=== PATIENT | male | born 1960 | race Caucasian/White ===

== ENCOUNTER 2018-03-31 00:15 | Inpatient (IN) ==
[2018-03-31] MEDS ORDERED: Ondansetron 4 MG/2 ML VIAL IVP PRN ×2 (03:19→14:05)
[2018-03-31] MEDS ORDERED: *HR* HYDROcodone/Acet 5/325 mg TABLET PO PRN ×2 (03:43→14:05)
[2018-03-31] MEDS ORDERED: Naloxone 0.4 MG/ML INJ IVP PRN ×2 (03:43→14:05)
[2018-03-31] MEDS ORDERED: *HR* FentaNYL (PF) 100 MCG/2 ML VIAL IVP PRN ×2 (03:43→14:05)
[2018-03-31] MEDS ORDERED: Acetaminophen 325 MG TABLET PO PRN ×2 (03:43→14:05)
--- NOTE | 2018-03-31 03:55 | Internal Med History&Physical ---
Addendum entered and electronically signed by Sravan Viveros MD 03/31/18 19:28: PLEASE NOTE: I ADMITTED THIS PATIENT. I AM THE ADMITTING HOSPITALIST WHO DOCUMENTED THE H&P BELOW. I CONSULTED DR. PEREZ FOR UROLOGIC INTERVENTION. Addendum entered and electronically signed by Glynn Perez 03/31/18 11:44: Patient seen and examined independently. History, review of systems and physical exam findings of PA verified. All pertinent imaging reviewed. I am in agreement with the assessment and plan as outlined by our Urologic Surgery [facility] Physician Vest Backer, Jane. Findings discussed with patient who agrees to proceed with surgery as outlined. Original Note: Date of Encounter: 03/31/18 Time of Encounter: 03:15 Internal Medicine - H&P: HPI Chief complaint: flank pain, N/V, fever/chills Admitted From: Hospital to Hospital Transfer Plans for Post Hospital Care: Home History of present illness: Mr. Verduzco is a 57 year old male who presents in transfer from [facility]. He presented to the ER there earlier tonight with complaints of sudden onset of left-sided flank pain radiating to his suprapubic area, nausea, vomiting, subjective fever, and chills. He also had some hematuria and [employer] colored urine earlier in the evening. Workup at [facility] revealed patient to have acute kidney injury and evidence of obstructive uropathy with an 8 mm ureteral stone on the left side. He also had some perinephric stranding on the CT scan imaging. I spoke with the ER staff and requested that they obtain a urine culture and give an empiric dose of antibiotics for presumptive pyelonephritis. Upon my assessment of the patient once he arrived, patient is resting in bed comfortably. He has minimal pain now. He does look a little dry. He reiterates the above history. Prior to today, he's had no symptoms. He does have a history of kidney stones about 10 years ago with similar presentation. Prior to today/last night, he denies any fevers, chills, or night sweats. He denies any nausea or vomiting other than tonight/this morning. He denies any prior history of prostate problems. Past Med Surg Social Fam HX - Past Medical History Attestation: Yes The following information was validated with the patient. Source: patient, old records reviewed, other ([facility] records) Medical history: cancer, hypertension, kidney stones, RA Additional medical history: skin cancer Psychiatric history: no psych history - Past Surgical History Surgical History: hip replacement, other Additional surgical history: left fontal scalp basal cell carcinoma - Social History Smoking Status: Former smoker Smokeless Tobacco Status: No Alcohol use: rarely Drug use: none Current living situation: Home, With Family Activity Level: Independent ambulation Recent Out of Country Travel Within the Last 8 Weeks: No - Family History Mother Living Status: Age at : 76 Cause of : Renal Failure Hx Family Cardiac Disorders: Yes (HTN) Hx Family Endocrine Disorder: Yes (DM) Father Living Status: Age at : 67 Cause of : Heart Hx Family Cardiac Disorders: Yes (HTN, Strokes) Hx Family Endocrine Disorder: Yes (DM) Internal Medicine - H&P: Meds Aspirin Enteric Coated [Aspirin EC] 325 mg PO DAILY #21 tablet. 08/13/15 [Rx] Cyclobenzaprine [Flexeril] 10 mg PO HS 08/14/15 [History] Diclofenac Sodium [Voltaren] 75 mg PO BID 08/14/15 [History] Folic Acid 2 mg PO DAILY 08/14/15 [History] Lisinopril [Zestril] 20 mg PO DAILY 08/14/15 [History] Methotrexate [Otrexup] 20 mg PO QWEEK 08/14/15 [History] Phenylephrine Nasal 0.5% [place] [[place]-Synephrine] 2 spray NS BID 08/14/15 [History] Potassium Citrate [Urocit-K] 10 meq PO BID 08/14/15 [History] Hydroxychloroquine Sulfate 200 mg PO BID 03/31/18 [History] Lisinopril [Zestril] 40 mg PO DAILY 03/31/18 [History] Methocarbamol 200 mg PO BID 03/31/18 [History] Allergy/AdvReac Type Severity Reaction Status Date / Time doxycycline AdvReac See Verified 08/14/15 14:04 Comments - Constitutional Constitutional: chills, fever(s), no night sweats - EENT Eyes: no blurry vision, no change in vision Ears: no ear pain, no tinnitus Nose, mouth and throat: no nasal congestion, no sinus pressure, no sore throat - Cardiovascular Cardiovascular ROS IM: no chest pain, no dyspnea, no dyspnea on exertion, no syncope - Respiratory Respiratory: no cough, no hemoptysis, no chest congestion, no excessive phlegm production, no change in phlegm color - Gastrointestinal Gastrointestinal: nausea, vomiting, no abdominal pain, no diarrhea, no hematemesis, no hematochezia, no melena - Genitourinary Genitourinary ROS male: difficulty urinating, dysuria, flank pain, hematuria - Musculoskeletal Musculoskeletal ROS IM: arthralgias, back pain - Integumentary Integumentary IM: no rash, no jaundice - Neurological Neurological ROS: no dizziness, no focal weakness, no frequent falls, no headache(s) - Psychiatric Psychiatric: no anxiety, no depression - Endocrine Endocrine IM: no polydipsia, no polyphagia, no polyuria - Allergic/Immunologic Allergic/Immunologic: no GI upset with certain foods - Constitutional Vitals: Temp Pulse Resp BP Pulse Ox 98.2 F 54 15 126/77 94 03/31/18 01:59 03/31/18 01:59 03/31/18 01:59 03/31/18 01:59 03/31/18 01:59 General appearance: Present: cooperative, mild distress, A&O X 3, pleasant, answers questions appropriately Exam: looks a little dry; otherwise NAD - Head Head exam: Present: normal inspection - Eye Eye exam: Present: EOMI, PERRL. Absent: scleral icterus Pupils: Present: normal accommodation - ENT ENT exam: Present: mucous membranes dry, normal exam, normal oropharynx - Neck Neck exam general surgery: Present: full ROM, supple. Absent: tenderness, nuchal rigidity, thyromegaly - Respiratory Respiratory exam: Present: CTAB. Absent: chest wall tenderness, rales, wheezes - Cardiovascular Cardiovascular exam: Present: RRR, +S1, +S2. Absent: diastolic murmur, systolic murmur - GI/Abdominal GI/Abdominal exam: Present: normal bowel sounds, soft, tenderness (left flank area/LUQ). Absent: guarding, hepatomegaly, mass, rebound, splenomegaly - Extremities Exam Extremities exam: Present: full ROM, normal capillary refill, warm, radial pulse s palpable and symmetrical. Absent: calf tenderness, joint swelling, pedal edema, tenderness - Back Exam Back exam: Present: CVA tenderness (L), normal inspection. Absent: CVA tenderness (R) - Neurological Exam Neurological exam: Present: alert, CN II-XII intact, oriented X3, no focal deficits, strengths equal and symetr throughout - Psychiatric Psychiatric exam: Present: normal affect, normal mood - Skin Skin exam: Present: dry, intact, warm Internal Med - H&P Results - Labs Labs: I reviewed the lab records from [facility], and they include the following: WBC 11.0 Hemoglobin 14.7 Hematocrit 43.3 Platelets 208 Sodium 140 Potassium 4.2 Chloride 106 Carbon Dioxide 26 BUN 21 Glucose [address] of the abdomen and pelvis reveals 8mm proximal left ureteral stone with moderate hydronephrosis and marked perinephric stranding - Assessment and plan (1) Ureteral stone with hydronephrosis Current Visit: Yes Status: Acute Assessment and plan: 1. Will keep npo and consult urology as he will likely need cystoscopy with stent placement. 2. IVF hydration and anti-emetic and pain control. (2) Pyelonephritis Current Visit: Yes Status: Suspected Assessment and plan: 1. Urine culture obtained at [facility]. 2. Will order urine culture here at [place] as well. 3. Will treat with IV antibiotics. 4. Will monitor clinically. (3) Acute kidney injury Current Visit: Yes Status: Acute Assessment and plan: 1. Hold LISA. 2. Will place on IVF and monitor I/O and renal function. 3. Consult nephrology if renal functions fails to improve after relief of uretereal obstruction. (4) Rheumatoid arthritis Current Visit: Yes Status: Chronic Assessment and plan: 1. Continue home meds as appropriate. 2. Outpatient follow up with card grader. Qualifiers: Rheumatoid arthritis location: hip Rheumatoid factor presence: unspecified presence Laterality: left Qualified Code(s): M06.9 - Rheumatoid arthritis, unspecified (5) Hypertension Current Visit: Yes Status: Chronic Assessment and plan: 1. Hold LISA. 2. Will order PRN hydralazine for BP control. Qualifiers: Hypertension type: essential hypertension Qualified Code(s): I10 - Essential (primary) hypertension (6) DVT prophylaxis Current Visit: Yes Status: Acute Assessment and plan: 1. Heparin SQ.
[2018-03-31] MEDS: 0.9 % Sodium Chloride 1,000 ML IVC SCH ×2 (04:18→06:35)
[2018-03-31 04:47] LABS: Basophils % 0.5 %; Eosinophils # 0.1 K/mcL (0.0-0.6); Hematocrit 39.8 % (37.5-50.1); Hemoglobin 13.3 g/dL (12.9-16.9); Immature Granulocytes % 0.1 % (0-4); Lymphocytes # 1.7 K/mcL (0.6-4.6); Lymphocytes % 20.5 %; Mean Corpuscular HGB Conc 33.4 g/dL (31.6-35.5); Mean Corpuscular Hemoglobin 29.9 pg (28.0-33.3); Mean Corpuscular Volume 89.4 fL (83.0-100.0); Mean Platelet Volume 9.4 fL (9.4-12.4); Monocytes # 0.6 K/mcL (0.0-1.3); Monocytes % 7.4 %; Neutrophils # 5.9 K/mcL (1.6-8.9); Platelet Count 187 K/mcL (140-400); Red Blood Count 4.45 M/mcL (4.19-5.50); Red Cell Distribution Width 13.7 % (11.5-14.5); Segmented Neutrophils % 70.5 %
[2018-03-31 04:53] LABS: INR 1.1
[2018-03-31] MEDS ORDERED: cefTRIAXone 2,000 MG in Water for inj. (sterile) 20 ML 20 ML IVP SCH (05:00)
[2018-03-31 05:06] LABS: Albumin 3.3 g/dL (3.5-5.7); Albumin/Globulin Ratio 1.6 (1.1-2.2); Bilirubin,Total 0.4 mg/dL (0.3-1.0); Calcium 7.9 mg/dL (8.6-10.3); Globulin 2.1 g/dL (2.4-3.5); Magnesium 1.9 mg/dL (1.6-2.6); Potassium 4.4 mEq/L (3.5-5.1); Total Protein 5.4 g/dL (6.4-8.9)
[2018-03-31] MEDS ORDERED: *HR* Heparin 5,000 UNIT/ML VIAL SQ SCH ×2 (06:00→18:00)
--- NOTE | 2018-03-31 07:28 | Internal Med Progress Note ---
Hospitalist Progress Note - Encounter Date of Encounter: 03/31/18 - Subjective Interval History: Patient admitted 03/31 300; essentially an event note - Exam Vitals: Temp Pulse Resp BP Pulse Ox 98.2 F 54 15 126/77 94 03/31/18 01:59 03/31/18 01:59 03/31/18 01:59 03/31/18 01:59 03/31/18 01:59 - Time Spent with Patient Total time spent is greater than 50% in coordination of care (as documented) at patient's floor/unit and/or counseling patient: Internal Medicine: Result - Labs CBC & Chem 7: 03/31/18 04:02 03/31/18 04:02 Labs: Short CBC 03/31/18 Range/Units 04:02 WBC 8.3 (4.3-11.1) K/mcL Hgb 13.3 (12.9-16.9) g/dL Hct 39.8 (37.5-50.1) % Plt Count 187 (140-400) K/mcL Neutrophils # 5.9 (1.6-8.9) K/mcL BMP 03/31/18 04:02 Sodium 137 Potassium 4.4 Chloride 110 H Carbon Dioxide 23 BUN 22 H Creatinine 1.48 H Glucose 103 Calcium 7.9 L Liver Function 03/31/18 Range/Units 04:02 Total Bilirubin 0.4 (0.3-1.0) mg/dL AST 14 (13-39) Units/L ALT 19 (7-52) Units/L Alkaline Phosphatase 57 (34-104) Units/L Albumin 3.3 L (3.5-5.7) g/dL - ABG Interpretation ABG results: PT/INR, D-dimer PT 12.0 Seconds (9.4-12.1) 03/31/18 04:02 Consult Discharge Plan - Plan Referrals: Alisa Vernon CNP [Primary Care Provider] -
[2018-03-31 08:12] LABS: Bilirubin,Urine Negative (Negative); Blood,Urine Large (Negative); Clarity,Urine Clear (Clear); Color,Urine Yellow (Yellow); Glucose,Urine (UA) Normal (Normal); Ketones,Urine Negative (Negative); Leukocyte Esterase,Urine Negative (Negative); Nitrite,Urine Negative (Negative); Protein,Urine Negative (Neg-Trace); Specific Gravity,Urine < 1.005 (1.010-1.025); Urobilinogen,Urine Normal (Normal)
[2018-03-31 08:15] LABS: Bacteria,Urine None Seen per hpf (None-Few); Hyaline Casts,Urine None Seen per lpf (None-Few); Squamous Epithelial Cell,Urine None Seen per lpf (None-Few); WBC,Urine 0-3 per hpf (0-3)
[2018-03-31] MEDS ORDERED: Phenylephrine Nasal 0.5% 15 ML BOTTLE NS SCH ×2 (09:00→21:00)
[2018-03-31] MEDS ORDERED: Aspirin Enteric Coated 325 MG Tablet PO SCH (09:00)
[2018-03-31] MEDS ORDERED: Folic Acid 1 MG TABLET PO SCH (09:00)
--- NOTE | 2018-03-31 09:24 | Urology - Consult Note ---
Addendum entered and electronically signed by Glynn Brady 03/31/18 13:02: Acute kidney injury: Secondary to ureteral obstruction. Plan: Urinary diversion by stenting. Left renal calculus: In addition to be symptomatic obstructing left ureteral stone there is a 5+ centimeters stone in the left kidney. Discussed findings and options for management. Plan: Will address ureteroscopically via laser lithotripsy at time of symptomatic stone treated. Original Note: <Rosalba Lara N - Last Filed: 03/31/18 09:21> Date of Encounter: 03/31/18 Time of Encounter: 08:50 - Assessment and Plan (1) Ureteral stone with hydronephrosis Current Visit: Yes Status: Acute Assessment and plan: Patient is a 57-year-old male who presents with an 8 mm left proximal ureteral stone and hydronephrosis. Discussed surgical risks and benefits with patient and his including bleeding, infection, scarring, stricture, damage to kidney, damage to bladder, damage to surrounding structures, anesthesia effects, possible deep vein thrombosis, failure to definitively extract stone. Patient a nd his verbalized understanding, and consent has been signed. Patient will remain nothing by mouth, and he is prepared undergo a left ureteroscopic stone extraction with holmium laser lithotripsy, basket retrieval, and left ureteral stent placement with Dr. Brady. Urology CN:HPI Consult date: 03/31/18 Reason for consult Urology: Other (left proximal 8mm ureteral stone and hydronephrosis) History of present illness: Patient is a 57-year-old male who presents with an 8 mm left proximal ureteral stone. Patient has a long-standing history of nephrolithiasis. Patient initially presented to [facility] emergency department, underwent a CT scan of abdomen and pelvis, and was subsequently transferred to [facility] for urologic evaluation. Patient presented with abrupt onset left flank pain radiating to the left groin, gross hematuria and nausea. Patient denies fever, chills, chest pain dyspnea. Mr. Verduzco is a previous patient of Dr. Villasenor at [facility] and was last seen 10 years ago for a ureteroscopic stone extraction. Patient denies any known family history of renal stones. On examination, patient is resting comfortably sitting upright in bed with his at bedside in no apparent distress. Patient states pain is well-controlled at present. Past Med Surg Social Fam HX - Past Medical History Medical history: cancer, hypertension, kidney stones, RA Additional medical history: skin cancer Psychiatric history: no psych history - Past Surgical History Surgical History: hip replacement, other Additional surgical history: left fontal scalp basal cell carcinoma - Social History Smoking Status: Former smoker Smokeless Tobacco Status: No Alcohol use: rarely Drug use: none - Family History Mother Living Status: Age at : 76 Cause of : Renal Failure Hx Family Cardiac Disorders: Yes (HTN) Hx Family Endocrine Disorder: Yes (DM) Father Living Status: Age at : 67 Cause of : Heart Hx Family Cardiac Disorders: Yes (HTN, Strokes) Hx Family Endocrine Disorder: Yes (DM) Medications and Allergies Aspirin Enteric Coated [Aspirin EC] 325 mg PO DAILY #21 tablet. 08/13/15 [Rx] Diclofenac Sodium [Voltaren] 75 mg PO BID 08/14/15 [History] Folic Acid 2 mg PO BID 08/14/15 [History] Lisinopril [Zestril] 20 mg PO DAILY 08/14/15 [History] Methotrexate [Otrexup] 20 mg PO QWEEK 08/14/15 [History] Potassium Citrate [Urocit-K] 10 meq PO BID 08/14/15 [History] Fluticasone Propionate [Allergy Relief] 1 spr NS BID 03/31/18 [History] Hydroxychloroquine Sulfate [Plaquenil] 200 mg PO BID 03/31/18 [History] Lisinopril [Zestril] 40 mg PO DAILY 03/31/18 [History] Methocarbamol [Robaxin] 500 mg PO BID 03/31/18 [History] cloNIDine HCl [CloNIDine HCl] 0.1 mg PO HS 03/31/18 [History] Allergy/AdvReac Type Severity Reaction Status Date / Time doxycycline AdvReac See Verified 08/14/15 14:04 Comments Review of Systems - Constitutional no chills, no fatigue, no fever(s) - EENT Nose, mouth and throat: no dizziness, no headache(s) - Cardiovascular no chest pain, no diaphoresis, no dyspnea - Respiratory no cough, no dyspnea - Gastrointestinal abdominal pain, nausea, no vomiting - Genitourinary flank pain (left), hematuria, urinary frequency, urinary urgency, no change in urinary stream, no difficulty urinating, no dysuria, no urinary hesitancy - Musculoskeletal no back pain, no muscle weakness - Integumentary no erythema, no rash - Neurological no confusion, no syncope - Psychiatric no anxiety, no confusion - Hematologic/Lymphatic easy bleeding, easy bruising (patient takes methotrexate for arthritis ) - Allergic/Immunologic no throat swelling, no wheezing Exam Initial Vital Signs Temp Pulse Resp BP Pulse Ox 98.2 F 54 15 126/77 94 03/31/18 01:59 03/31/18 01:59 03/31/18 01:59 03/31/18 01:59 03/31/18 01:59 - General physical appearance Present: well developed, no distress, no pain - Eyes Present: PERRL, normal ocular movement - ENT Present: normal nares, no hearing loss, no congestion - Neck Present: no masses, trachea midline - Respiratory Present: normal respiratory effort - Cardiovascular Cardiovascular exam IM: RRR - Abdomen Abdomen: Present: soft, non tender - Integumentary Present: no rash, no abnormal pigmentation - Neurologic Present: normal coordination - Musculoskeletal Present: other (normal posture ) Urology Results - Labs 03/31/18 04:02 03/31/18 04:02 Abnormal lab results Chloride 110 mEq/L (98-107) H 03/31/18 04:02 BUN 22 mg/dL (6-20) H 03/31/18 04:02 Creatinine 1.48 mg/dL (0.70-1.30) H 03/31/18 04:02 Est GFR ( Amer) 59 (> 60) L 03/31/18 04:02 Est GFR (Non-Af Amer) 49 (> 60) L 03/31/18 04:02 Calcium 7.9 mg/dL (8.6-10.3) L 03/31/18 04:02 Serum Total Protein 5.4 g/dL (6.4-8.9) L 03/31/18 04:02 Albumin 3.3 g/dL (3.5-5.7) L 03/31/18 04:02 Globulin 2.1 g/dL (2.4-3.5) L 03/31/18 04:02 Ur Specific [place] < 1.005 (1.010-1.025) L 03/31/18 05:42 Urine Blood Large (Negative) H 03/31/18 05:42 Urine Microscopic RBC 3-5 per hpf (0-3) H 03/31/18 05:42 Diabetes panel 03/31/18 Range/Units 04:02 Sodium 137 (136-145) mEq/L Potassium 4.4 (3.5-5.1) mEq/L Chloride 110 H (98-107) mEq/L Carbon Dioxide 23 (23-29) mEq/L BUN 22 H (6-20) mg/dL Creatinine 1.48 H (0.70-1.30) mg/dL Glucose 103 (70-105) mg/dL Calcium 7.9 L (8.6-10.3) mg/dL AST 14 (13-39) Units/L ALT 19 (7-52) Units/L Alkaline Phosphatase 57 (34-104) Units/L Albumin 3.3 L (3.5-5.7) g/dL Calcium panel 03/31/18 Range/Units 04:02 Calcium 7.9 L (8.6-10.3) mg/dL Albumin 3.3 L (3.5-5.7) g/dL Pituitary panel 03/31/18 Range/Units 04:02 Sodium 137 (136-145) mEq/L Potassium 4.4 (3.5-5.1) mEq/L Chloride 110 H (98-107) mEq/L Carbon Dioxide 23 (23-29) mEq/L BUN 22 H (6-20) mg/dL Creatinine 1.48 H (0.70-1.30) mg/dL Glucose 103 (70-105) mg/dL Calcium 7.9 L (8.6-10.3) mg/dL Adrenal panel 03/31/18 Range/Units 04:02 Sodium 137 (136-145) mEq/L Potassium 4.4 (3.5-5.1) mEq/L Chloride 110 H (98-107) mEq/L Carbon Dioxide 23 (23-29) mEq/L BUN 22 H (6-20) mg/dL Creatinine 1.48 H (0.70-1.30) mg/dL Glucose 103 (70-105) mg/dL Calcium 7.9 L (8.6-10.3) mg/dL Total Bilirubin 0.4 (0.3-1.0) mg/dL AST 14 (13-39) Units/L ALT 19 (7-52) Units/L Alkaline Phosphatase 57 (34-104) Units/L Albumin 3.3 L (3.5-5.7) g/dL All other labs normal. - Imaging CT scan - abdomen: report reviewed CT scan - pelvis: report reviewed (images performed through [facility]) Consult Discharge Plan - Plan Referrals: Alisa Vernon, EARRING MAKER [Primary Care Provider] - <Glynn Brady W - Last Filed: 03/31/18 11:46> Date of Encounter: 03/31/18 - Assessment and Plan (1) Ureteral stone with hydronephrosis Current Visit: Yes Status: Acute Assessment and plan: Patient seen and examined independently. History, review of systems and physical exam findings of PA verified. All pertinent imaging reviewed. I am in agreement with the assessment and plan as outlined by our Urologic Surgery Department Physician Retail Analyst, Jane. Findings discussed with patient who agrees to proceed with surgery as outlined. Exam Initial Vital Signs Temp Pulse Resp BP Pulse Ox 98.2 F 54 15 126/77 94 03/31/18 01:59 03/31/18 01:59 03/31/18 01:59 03/31/18 01:59 03/31/18 01:59 Urology Results - Labs 03/31/18 04:02 03/31/18 04:02 Abnormal lab results Chloride 110 mEq/L (98-107) H 03/31/18 04:02 BUN 22 mg/dL (6-20) H 03/31/18 04:02 Creatinine 1.48 mg/dL (0.70-1.30) H 03/31/18 04:02 Est GFR ( Amer) 59 (> 60) L 03/31/18 04:02 Est GFR (Non-Af Amer) 49 (> 60) L 03/31/18 04:02 Calcium 7.9 mg/dL (8.6-10.3) L 03/31/18 04:02 Serum Total Protein 5.4 g/dL (6.4-8.9) L 03/31/18 04:02 Albumin 3.3 g/dL (3.5-5.7) L 03/31/18 04:02 Globulin 2.1 g/dL (2.4-3.5) L 03/31/18 04:02 Ur Specific [place] < 1.005 (1.010-1.025) L 03/31/18 05:42 Urine Blood Large (Negative) H 03/31/18 05:42 Urine Microscopic RBC 3-5 per hpf (0-3) H 03/31/18 05:42 Diabetes panel 03/31/18 Range/Units 04:02 Sodium 137 (136-145) mEq/L Potassium 4.4 (3.5-5.1) mEq/L Chloride 110 H (98-107) mEq/L Carbon Dioxide 23 (23-29) mEq/L BUN 22 H (6-20) mg/dL Creatinine 1.48 H (0.70-1.30) mg/dL Glucose 103 (70-105) mg/dL Calcium 7.9 L (8.6-10.3) mg/dL AST 14 (13-39) Units/L ALT 19 (7-52) Units/L Alkaline Phosphatase 57 (34-104) Units/L Albumin 3.3 L (3.5-5.7) g/dL Calcium panel 03/31/18 Range/Units 04:02 Calcium 7.9 L (8.6-10.3) mg/dL Albumin 3.3 L (3.5-5.7) g/dL Pituitary panel 03/31/18 Range/Units 04:02 Sodium 137 (136-145) mEq/L Potassium 4.4 (3.5-5.1) mEq/L Chloride 110 H (98-107) mEq/L Carbon Dioxide 23 (23-29) mEq/L BUN 22 H (6-20) mg/dL Creatinine 1.48 H (0.70-1.30) mg/dL Glucose 103 (70-105) mg/dL Calcium 7.9 L (8.6-10.3) mg/dL Adrenal panel 03/31/18 Range/Units 04:02 Sodium 137 (136-145) mEq/L Potassium 4.4 (3.5-5.1) mEq/L Chloride 110 H (98-107) mEq/L Carbon Dioxide 23 (23-29) mEq/L BUN 22 H (6-20) mg/dL Creatinine 1.48 H (0.70-1.30) mg/dL Glucose 103 (70-105) mg/dL Calcium 7.9 L (8.6-10.3) mg/dL Total Bilirubin 0.4 (0.3-1.0) mg/dL AST 14 (13-39) Units/L ALT 19 (7-52) Units/L Alkaline Phosphatase 57 (34-104) Units/L Albumin 3.3 L (3.5-5.7) g/dL All other labs normal.
[2018-03-31] MEDS ORDERED: Isovue-300 50 ML VIAL IVP ONE (11:19)
--- NOTE | 2018-03-31 11:30 | Anesthesia Evaluation PreOp ---
Date of Encounter: 03/31/18 Time of Encounter: 11:45 - Past History Planned Operation: Left Ureteroscopic Stone Exraction Cardiac History: HTN, Hyperlipidemia Pulmonary History: Former smoker (quit 20 years ago), Asthma TRAILER PARK MANAGER History: Denies Any Significant HX Other Medical History: Renal (kidney stones), Other (skin CA, RA) Anesthesia History: No Prior Anesthetic Complications, Past Anesthesia Alcohol Use: rarely Drug use: none Medications and Allergies Aspirin Enteric Coated [Aspirin EC] 325 mg PO DAILY #21 tablet. 08/13/15 [Rx] Diclofenac Sodium [Voltaren] 75 mg PO BID 08/14/15 [History] Folic Acid 2 mg PO BID 08/14/15 [History] Lisinopril [Zestril] 20 mg PO DAILY 08/14/15 [History] Methotrexate [Otrexup] 20 mg PO QWEEK 08/14/15 [History] Potassium Citrate [Urocit-K] 10 meq PO BID 08/14/15 [History] Fluticasone Propionate [Allergy Relief] 1 spr NS BID 03/31/18 [History] Hydroxychloroquine Sulfate [Plaquenil] 200 mg PO BID 03/31/18 [History] Lisinopril [Zestril] 40 mg PO DAILY 03/31/18 [History] Methocarbamol [Robaxin] 500 mg PO BID 03/31/18 [History] cloNIDine HCl [CloNIDine HCl] 0.1 mg PO HS 03/31/18 [History] Allergy/AdvReac Type Severity Reaction Status Date / Time doxycycline AdvReac See Verified 08/14/15 14:04 Comments - Meds/Allergy Pre-op Review Medications Reviewed: Yes Allergies Reviewed: Yes Beta Blockers on Current Med List: No Anesthesia Results - Labs 03/31/18 04:02 03/31/18 04:02 - Imaging EKG: report reviewed (08/14/2015 Sinus rhythm) Anesthesia Exam Vital Signs/O2 Sat/Glucose, Most Recent Temp Pulse Resp BP Pulse Ox 97.9 F 52 16 131/69 97 03/31/18 08:01 03/31/18 08:01 03/31/18 08:01 03/31/18 08:01 03/31/18 08:01 Blood Glucose* 88 Height: 6'1''/1.85m Weight: 259 lbs/118 kg NPO (# of Hours): 8 Pain Scale: 0 Pain Scale Used: Numeric (1 - 10) - HEENT Pupil (Motor): EOMI Mallampati: II Teeth: Normal, Prosthesis Oral Opening: Greater than 3 - TRAILER PARK MANAGER LOC: Oriented TRAILER PARK MANAGER Motor: Normal RUE, Normal LUE, Normal RLE, Normal LLE, Normal Face TRAILER PARK MANAGER Sensory: Normal: RUE, LUE, RLE, LLE, Face - Cardiac Rhythm: Regular Murmur: None - Pulmonary Breath Sounds: bilateral Clear Respiratory Effort: Symmetrical Anesthesia Assess/Plan ASA Score: 2 Level of consciousness: Cooperative, Oriented, Tranquil Anesthetic Plan: General Monitoring Plan: Standard Monitors Recovery Plan: PACU
[2018-03-31] MEDS ORDERED: Albuterol 2.5 MG/3 ML NEBULIZER ONE (11:40)
[2018-03-31] MEDS ORDERED: Albuterol 2.5 MG/3 ML NEBULIZER IH ONE ×2 (11:49→14:05)
[2018-03-31] MEDS ORDERED: Ketorolac 30 MG/ML VIAL ONE (11:56)
[2018-03-31] MEDS ORDERED: Dexamethasone 4 MG/ML VIAL ONE (11:56)
[2018-03-31] MEDS ORDERED: Lidocaine -MPF 2% 2 ML VIAL ONE (11:56)
[2018-03-31] MEDS ORDERED: Ondansetron 4 MG/2 ML VIAL ONE (11:56)
[2018-03-31] MEDS ORDERED: *HR* FentaNYL (PF) 100 MCG/2 ML VIAL ONE (11:56)
[2018-03-31] MEDS ORDERED: *HR* Propofol 200 MG/20 ML VIAL IVP ONE (11:57)
[2018-03-31] MEDS ORDERED: *HR* Midazolam HCl 2 MG/2 ML VIAL ONE (11:57)
[2018-03-31] MEDS ORDERED: *HR* Morphine 2 MG/ML SYRINGE IVP PRN ×2 (12:46→14:05)
[2018-03-31] MEDS ORDERED: *HR* OxyCODONE Immed Rel 5 MG TABLET PO PRN ×2 (12:46→14:05)
[2018-03-31] MEDS ORDERED: *HR* Promethazine 25 MG/ML VIAL IVP PRN ×2 (12:46→14:05)
--- NOTE | 2018-03-31 12:58 | Operative Note ---
Date of procedure: 03/31/18 Pre-op diagnosis: left ureteral and renal calculus Post-op diagnosis: same Procedure: Cystoscopy, left retrograde ureteral pyelography with intraoperative interpretation of all radiographic images in real time by surgeon to facilitate procedure, flexible left ureteroscopy, holmium laser lithotripsy of left ureteral calculus, holmium laser lithotripsy of left renal calculus, left double-J stent placement Implants: 6 x 26 left double-J stent Complications: none Anesthesia: GETA Surgeon: Glynn Brady Was there an assistant store manager sales present: No Estimated blood loss (cc): 2 Specimen: None Condition: stable Disposition: PACU Procedure in Detail: Very pleasant 57-year-old gentleman with history of nephrolithiasis with prior intervention via ureteroscopy 1 remotely. Patient now transferred from [facility] severe onset of left-sided flank pain where CT shows obstructing 8 mm proximal left ureteral catheter was as well as an additional 5+ millimeter calculus which is nonobstructive in the left kidney. There was some question of pyelonephritis however the patient's urine is not suggestive of infection and he is afebrile. After discussion of risks benefits and alternatives patient elects for surgical address for which he now presents. Patient brought the operating theater placed on table supine position. Patient was identified by name and administered a general anesthetic. The patient was p laced in dorsal lithotomy prepped and draped in the normal sterile fashion. A cystoscope was inserted into the urethral meatus and advanced with the bladder under direct visualization. There were no mucosal normality of the bladder or urethra. An open-ended catheter was placed the tip of the left ureteral orifice and with gentle injection of contrast a left retrograde ureteropyelogram was performed. Real-time intraoperative interpretation of radiographic images revealed a filling defect at the level the proximal ureter consistent with stone seen on CT. On additional images filling defect was seen in the upper pole major calyx consistent with the of the stone noted on CT. No other suspicious findings were appreciated. There was mild to moderate hydroureteronephrosis. Based on real-t conchita interpretation of these images flexible ureteroscopy was indicated for address of both ureteral and renal stones. [place] Glidewire a 14-Khmer ureteral access sheath was advanced into the mid ureter. Through the ureteral access sheath a flexible scope was advanced. The ureteroscope was advanced all the way to the renal pelvis. With manipulation wire irrigation and scope ureteral catheter was have been pushed into the kidney. Inspection of upper minimal pole calyceal systems encountered small of the 2 stones in the upper pole calyceal system. Using the 200 fiber on a setting of 0.8 and 8 the stone was easily fragmented multiple pieces were felt to be of passable size. The larger stone which had migrated from the ureter was located in the lower pole calyceal system. This was difficult access and required maximum deflection of the scope. Eventually were able to get the 200 fiber and the larger stone in lower pole system. The stone was likewise fragmented multiple pieces were felt to be of passable size. At this point all instruments were removed except for the Glidewire. Over the Glidewire a 6 x 26 double-J stent was advanced. Once the sent was felt in good position, real-time fluoroscopy confirmed curls of the stent in the bladder and renal pelvis post removal of Glidewire. This was felt to be an excellent result. Thus, this ended the operative procedure.
--- NOTE | 2018-03-31 13:21 | Anesthesia Evaluation Post Op ---
Date of Encounter: 03/31/18 Time of Encounter: 13:20 - Vital Signs Vital Signs: Vital Signs/O2 Sat, Most Current Temp Pulse Resp BP Pulse Ox 98.9 F 51 16 133/71 94 03/31/18 12:58 03/31/18 13:18 03/31/18 13:18 03/31/18 13:18 03/31/18 13:18 - Lungs Lungs: Clear Ascult./Percussion - Airway Airway: Non-obstructed - Cardiovascular Regular Rate - Mental Status Mental Status: Alert & Oriented, Answers Appropriately - Pain Pain Scale: 0 Pain Scale used: Numeric (1 - 10) - Nausea Vomiting Nausea Vomiting: Not Present - Hydration Hydration: Tolerates oral liquids, Has not voided - Discharge PostOp Status: Transfer Patient to floor
[2018-03-31] MEDS ORDERED: 0.9 % Sodium Chloride 1,000 ML IVC SCH (14:05)
--- NOTE | 2018-03-31 14:35 | Discharge Summary ---
<Travis De La Vega - Last Filed: 03/31/18 15:06> - NOTES TO OUTPATIENT PROVIDER Notes to Outpatient Provider: PCP and Urology Outpatient (Urology plans to call soon regarding stent removal in 2 weeks); s/p stenting/lithotripsy. BMP 2 days after discharge. Please aoid NSAIDs until MANUELITO demonstrated to have resolved; follow-up with PCP in [place] Orders not resulted at time of discharge: Pending orders 03/31/18 06:15 Culture,Urine [RM] Stat Date of Encounter: 03/31/18 Time of Encounter: 10:00 - Discharge Diagnosis (1) Ureteral stone with hydronephrosis Priority: Primary Status: Resolved (2) Acute kidney injury Priority: Secondary Status: Acute (3) Rheumatoid arthritis Priority: Secondary Status: Chronic Qualifiers: Rheumatoid arthritis location: hip Rheumatoid factor presence: unspecified presence Laterality: left Qualified Code(s): M06.9 - Rheumatoid arthritis, unspecified Hospital course: Mr. Verduzco is a 57 year old male who history of nephrolithiasis with prior uretoeroscopy 10 years ago who presented as transfer for severe left sided flank pain. CT showed 8mm obstructing proximal ureteral stone with moderate hydronephrosis. Patient was admitted for ureteroscopy, lithotripsy, and stent placement. Confirmation with fluoroscopy performed. Patient was discharged sameday, instructed to follow-up in 2 weeks with Urology for likely stent removal; 2 days from now he is to get a BMP, to reassess kidney function. PCP follow-up recommended within the week for follow-up to manuelito and chronic conditions. - Time Spent with Patient Total time spent providing and/or coordinating discharge services: - Discharge Medications Prescriptions: RX: OxyCODONE/APAP 5/325 [Percocet 5/325 MG] 1 each PO Q6HR PRN 5 Days #20 tablet PRN Reason: Pain Home Medications: RX: Aspirin Enteric Coated [Aspirin EC] 325 mg PO DAILY #21 tablet. 08/13/15 [Rx] RX: Diclofenac Sodium [Voltaren] 75 mg PO BID 08/14/15 [History] RX: Folic Acid 2 mg PO BID 08/14/15 [History] RX: Lisinopril [Zestril] 20 mg PO DAILY 08/14/15 [History] RX: Methotrexate [Otrexup] 20 mg PO QWEEK 08/14/15 [History] RX: Potassium Citrate [Urocit-K] 10 meq PO BID 08/14/15 [History] RX: Fluticasone Propionate [Allergy Relief] 1 spr NS BID 03/31/18 [History] RX: Hydroxychloroquine Sulfate [Plaquenil] 200 mg PO BID 03/31/18 [History] RX: Lisinopril [Zestril] 40 mg PO DAILY 03/31/18 [History] RX: Methocarbamol [Robaxin] 500 mg PO BID 03/31/18 [History] RX: OxyCODONE/APAP 5/325 [Percocet 5/325 MG] 1 each PO Q6HR PRN 5 Days #20 tablet 03/31/18 [Rx] RX: cloNIDine HCl [CloNIDine HCl] 0.1 mg PO HS 03/31/18 [History] Allergies/Adverse Reactions: Allergy/AdvReac Type Severity Reaction Status Date / Time doxycycline AdvReac See Verified 08/14/15 14:04 Comments Date of admission: 03/31/18 03:43 Primary care physician: Alisa Vernon, Consults: 03/31/18 03:45 Consult to Physician [CONS] Routine Consulting Provider: Glynn Brady Reason for Consult: ureteral stone with hydronephrosis Call Completed: No - Constitutional Vitals: Temp Pulse Resp BP Pulse Ox 97.4 F L 60 18 136/72 95 03/31/18 13:40 03/31/18 13:40 03/31/18 13:40 03/31/18 13:40 03/31/18 13:40 General appearance: Present: cooperative, A&O X 3, pleasant, answers questions appropriately Exam: . - Head Head exam: Present: atraumatic, normocephalic - Eye Eye exam: Present: conjuntiva pink, sclera anicteric - Neck Neck exam general surgery: Present: supple, trachea midline. Absent: lymphadenopathy - Respiratory Respiratory exam: Present: CTAB. Absent: accessory muscle use, rales, rhonchi, wheezes - Cardiovascular Cardiovascular exam: Present: RRR, +S1, +S2. Absent: diastolic murmur, gallop, rubs, systolic murmur - GI/Abdominal GI/Abdominal exam: Present: normal bowel sounds, soft, no peritoneal signs. Absent: distended, tenderness - Extremities Exam Extremities exam: Present: warm, radial pulses palpable and symmetrical. Absent: calf tenderness, cyanotic, pedal edema - Neurological Exam Neurological exam: Present: CN II-XII intact, oriented X3, no focal deficits. Absent: pronater drift, facial droop, speech deficit - Skin Skin exam: Present: dry, intact - Patient Status Disposition: Home, Self-Care Condition: Good Functional capacity at discharge: independent ambulation Overall status at discharge: patient is back to baseline - Ambulatory Orders Ambulatory Orders: Basic Metabolic Panel [CHEM] Time Frame: 2 Days, Facility: [facility], Location: Lab - Discharge Instructions Follow Up With: Alisa Vernon CNP [Primary Care Provider] - 04/07/18 1:00 pm Glynn Brady [Partnered Physician] - 04/15/18 2:00 pm Forms: Work/School Release - Diet and Activity Activity: resume usual activities as tolerated Diet: regular diet <Ernesto Shaikh - Last Filed: 03/31/18 19:50> Orders not resulted at time of discharge: Pending orders 03/31/18 06:15 Culture,Urine [RM] Stat Date of Encounter: 03/31/18 - Discharge Diagnosis (1) Rheumatoid arthritis Status: Chronic Qualifiers: Rheumatoid arthritis location: hip Rheumatoid factor presence: unspecified presence Laterality: left Qualified Code(s): M06.9 - Rheumatoid arthritis, unspecified (2) Ureteral stone with hydronephrosis Status: Resolved (3) Acute kidney injury Status: Acute (4) Hypertension Priority: Secondary Status: Chronic Qualifiers: Hypertension type: essential hypertension Qualified Code(s): I10 - Essential (primary) hypertension Hospital course: Mr. Verduzco is a 57 year old male - Time Spent with Patient Total time spent providing and/or coordinating discharge services: Date of admission: 03/31/18 03:43 Primary care physician: Alisa Vernon, Consults: 03/31/18 03:45 Consult to Physician [CONS] Routine Consulting Provider: Glynn Brady Reason for Consult: ureteral stone with hydronephrosis Call Completed: No - Constitutional Vitals: Temp Pulse Resp BP Pulse Ox 98.2 F 71 18 132/75 94 03/31/18 14:10 03/31/18 14:10 03/31/18 14:10 12/04/18 14:10 03/31/18 14:10 - Attending Attestation I examined this patient and my medical decision-making was reviewed with the Resident Physician on 03/31/18. I agree with the documented findings, disposition and treatment plan as described except to the extent set forth below. Mr Verduzco has been admitted for acute obstructive uropathy due to stone. He had stent placed today. He has mild MANUELITO that will be rechecked. He is now afebrile and ready for discharge home. Exam alert Comfortable Mucus membranes dry Heart not tachy No wheeze abd soft Plan D/C home today.
[2018-03-31 14:45] VITALS: BP 132/75
[2018-04-01] MEDS ORDERED: cefTRIAXone 2,000 MG in Water for inj. (sterile) 20 ML 20 ML IVP SCH (05:00)
[2018-04-01] MEDS ORDERED: Folic Acid 1 MG TABLET PO SCH (09:00)
[2018-04-01] MEDS ORDERED: Aspirin Enteric Coated 325 MG Tablet PO SCH (09:00)
[2018-04-03] MEDS ORDERED: *HR* Methotrexate 2.5 MG TABLET PO SCH ×2 (09:00)
== END 2018-03-31 16:14 | disposition home or self-care (01) | DRG 661 ==
LOC: 3ANU → SUATTDRO 03:43
PROVIDERS: ADMIT Pediatrics; ATTEND Internal Medicine

== ENCOUNTER 2019-10-25 06:28 | Observation (INO) ==
[~2019-10-25 06:28] MED LIST: Bacitracin 50,000 UNIT, Polymyxin B Sulfate 500,000 UNIT, Sodium Chloride IRRigation 1,... IR ONE
[2019-10-25] MEDS ORDERED: Famotidine 20 MG/2 ML VIAL IVP ONE (06:50)
[2019-10-25] MEDS ORDERED: Acetaminophen IV 1,000 MG/100 ML INFUS..BTL IVPB ONE (06:50)
[2019-10-25] MEDS ORDERED: *HR* Methadone 10 MG TABLET PO ONE (06:51)
[2019-10-25] MEDS ORDERED: *HR* Succinylcholine 200 MG/10 ML VIAL IVP ONE (07:01)
[2019-10-25] MEDS ORDERED: *HR* Remifentanil 1 MG VIAL IVP ONE ×2 (07:01→10:48)
[2019-10-25] MEDS ORDERED: CeFAZolin Syr 2,000MG/20 ML 2,000 MG/20 ML SYRINGE IVPB ONE (07:01)
[2019-10-25] MEDS ORDERED: Dexamethasone 4 MG/ML VIAL ONE (07:01)
[2019-10-25] MEDS ORDERED: *HR* Phenylephrine 10 MG/ML VIAL ONE (07:01)
[2019-10-25] MEDS ORDERED: Lidocaine -MPF 2% 2 ML VIAL ONE (07:01)
[2019-10-25] MEDS ORDERED: Ondansetron 4 MG/2 ML VIAL ONE (07:01)
[2019-10-25] MEDS ORDERED: *HR* FentaNYL (PF) 100 MCG/2 ML VIAL ONE (07:01)
[2019-10-25] MEDS ORDERED: Lidocaine -MPF 4% 5 ML AMPUL ONE (07:01)
[2019-10-25] MEDS ORDERED: *HR* Propofol 200 MG/20 ML VIAL IVP ONE (07:02)
[2019-10-25] MEDS ORDERED: Ringers Solution, Lactated 1,000 ML IVC SCH (07:15)
[2019-10-25] MEDS ORDERED: *HR* Vasopressin 20 UNIT/ML VIAL ONE (07:37)
[2019-10-25] MEDS ORDERED: EPHEDrine 50 MG/ML VIAL ONE (08:07)
[2019-10-25] MEDS ORDERED: *HR* Rocuronium Bromide 50 MG/5 ML VIAL ONE (08:46)
[2019-10-25] MEDS ORDERED: *HR* HYDROMORPHONE 2 MG/ML VIAL ONE (09:20)
[2019-10-25] MEDS ORDERED: Ondansetron 4 MG/2 ML VIAL IVP ONE (10:22)
[2019-10-25] MEDS ORDERED: *HR* HYDROmorphone PF 0.5 MG/0.5 ML SYRINGE IVP PRN (10:22)
[2019-10-25] MEDS ORDERED: *HR* Promethazine 25 MG/ML VIAL IVP PRN (10:22)
[2019-10-25] MEDS ORDERED: Albumin Human 5% 12.5 GM/250 ML IV.SOLN ONE ×2 (10:25→11:16)
[2019-10-25] MEDS ORDERED: *HR* PHENYLEPHRINE 1,000 MCG/10 ML SYRINGE IVP ONE (10:56)
[2019-10-25] MEDS ORDERED: Acetaminophen 325 MG TABLET PO PRN (14:39)
[2019-10-25] MEDS ORDERED: Ondansetron 4 MG/2 ML VIAL IVP PRN (14:39)
[2019-10-25] MEDS ORDERED: *HR* LORazepam 0.5 MG TABLET PO PRN (14:39)
[2019-10-25] MEDS ORDERED: Naloxone 0.4 MG/ML INJ IVP PRN (14:39)
[2019-10-25] MEDS: Ringers Solution, Lactated 1,000 ML IVC SCH (16:22)
[2019-10-25] MEDS: Gabapentin 300 MG CAPSULE PO SCH ×2 (16:22→21:18)
[2019-10-25] MEDS: CeFAZolin 2 GM/120 ML BAG IVPB SCH ×2 (16:23→23:20)
[2019-10-25] MEDS: *HR* OxyCODONE Immed Rel 5 MG TABLET PO PRN ×2 (16:41→22:26)
[2019-10-25] MEDS: cloNIDine HCL 0.1 MG TABLET PO SCH (21:18)
[2019-10-25] MEDS: Potassium Citrate 10 MEQ TABLET.ER PO SCH (21:18)
[2019-10-25] MEDS: Baclofen 10 MG TABLET PO SCH (21:18)
[2019-10-25] MEDS: IPRATROPIUM BROMIDE NS SCH (21:19)
[2019-10-25] MEDS: Fluticasone Propionate Nasal 50 MCG/SPRAY BOTTLE NS SCH (21:19)
[2019-10-26 05:06] LABS: Basophils % 0.1 %; Eosinophils % 0.1 %; Hematocrit 33.5 % (37.5-50.1); Immature Granulocytes % 0.2 % (0-4); Lymphocytes # 1.3 K/mcL (0.6-4.6); Lymphocytes % 15.5 %; Mean Corpuscular HGB Conc 32.8 g/dL (31.6-35.5); Mean Corpuscular Hemoglobin 30.1 pg (28.0-33.3); Mean Corpuscular Volume 91.5 fL (83.0-100.0); Mean Platelet Volume 9.1 fL (9.4-12.4); Monocytes # 0.8 K/mcL (0.0-1.3); Monocytes % 9.4 %; Platelet Count 169 K/mcL (140-400); Red Blood Count 3.66 M/mcL (4.19-5.50); Red Cell Distribution Width 13.8 % (11.5-14.5); Segmented Neutrophils % 74.7 %; White Blood Count 8.1 K/mcL (4.3-11.1)
[2019-10-26] MEDS: Ringers Solution, Lactated 1,000 ML IVC SCH (07:40)
[2019-10-26] MEDS: Folic Acid 1 MG TABLET PO SCH (08:12)
[2019-10-26] MEDS: Gabapentin 300 MG CAPSULE PO SCH ×3 (08:12→21:01)
[2019-10-26] MEDS: Baclofen 10 MG TABLET PO SCH ×2 (08:13→21:01)
[2019-10-26] MEDS: Potassium Citrate 10 MEQ TABLET.ER PO SCH ×2 (08:13→21:01)
[2019-10-26] MEDS: Fluticasone Propionate Nasal 50 MCG/SPRAY BOTTLE NS SCH ×2 (08:14→21:01)
[2019-10-26] MEDS: IPRATROPIUM BROMIDE NS SCH ×2 (08:19→21:02)
[2019-10-26] MEDS: *HR* HYDROcodone/Acet 5/325 mg TABLET PO PRN ×2 (08:29→17:07)
[2019-10-26] MEDS: lisinopriL 20 MG TABLET PO SCH (10:59)
[2019-10-26] MEDS: cloNIDine HCL 0.1 MG TABLET PO SCH (21:01)
[2019-10-27] MEDS: *HR* OxyCODONE Immed Rel 5 MG TABLET PO PRN ×2 (05:55→15:28)
[2019-10-27] MEDS: lisinopriL 20 MG TABLET PO SCH (09:43)
[2019-10-27] MEDS: Potassium Citrate 10 MEQ TABLET.ER PO SCH (09:43)
[2019-10-27] MEDS: Baclofen 10 MG TABLET PO SCH (09:43)
[2019-10-27] MEDS: Gabapentin 300 MG CAPSULE PO SCH ×2 (09:43→15:26)
[2019-10-27] MEDS: Folic Acid 1 MG TABLET PO SCH (09:43)
[2019-10-27] MEDS: Fluticasone Propionate Nasal 50 MCG/SPRAY BOTTLE NS SCH (09:45)
[2019-10-27] MEDS: *HR* HYDROcodone/Acet 5/325 mg TABLET PO PRN (09:52)
[2019-10-27 10:20] VITALS: BP 116/70
[2019-10-29] MEDS ORDERED: *HR* Methotrexate 2.5 MG TABLET PO SCH (13:01)
== END 2019-10-27 15:30 | disposition home health service (06) ==
LOC: 3NENU 06:28 → SAMDAY 06:28 → 3NENU 14:38
PROVIDERS: ADMIT Orthopaedic Surgery Orthopaedic Surgery of the Spine; ATTEND Orthopaedic Surgery Orthopaedic Surgery of the Spine